=== PATIENT | female | born 1995 | race Caucasian/White ===

== ENCOUNTER → 2017-01-21 | Outpatient (CLI) | payer BC | LOC: BHSO 10:52 | DX: F41.1 Generalized anxiety disorder (principal) | CPT/HCPCS: 90791-AI ==

== ENCOUNTER → 2017-03-05 | Outpatient (CLI) | payer BC | LOC: BHSO 10:05 | DX: F41.1 Generalized anxiety disorder (principal) ==

== ENCOUNTER → 2017-06-10 | Outpatient (CLI) | payer BC | LOC: BHSO 14:16 | DX: F41.1 Generalized anxiety disorder (principal) ==

== ENCOUNTER → 2017-07-31 | Outpatient (CLI) | payer OTHER | LOC: BHSO 13:53 | DX: F41.1 Generalized anxiety disorder (principal) | CPT/HCPCS: G0463 ==

== ENCOUNTER 2023-06-20 02:57 | Outpatient (CLI) | payer BC ==
[~2023-06-20] VITALS: Ht 157.5 cm; Wt 92.7 kg
[2023-06-20] MEDS ORDERED: GLUCOSE TEST ST1 DEV (03:18)
[2023-06-20] MEDS ORDERED: GLUCOPHAGE1000 MG PO (03:18)
[2023-06-20] MEDS ORDERED: OMEGA-3 1000 MG1 CAP PO (03:24)
[2023-06-20] MEDS ORDERED: PRENATAL TABLET PO (03:25)
[2023-06-20] MEDS ORDERED: ZOLOFT 100MG100 MG PO (03:25)
[2023-06-20] MEDS ORDERED: NATURAL MAGNES200 MG PO (03:25)
[2023-06-20] MEDS ORDERED: VITAMIN D 400400 IU PO (03:26)
[2023-06-20] MEDS ORDERED: COLACE 100100 MG/CAP PO (03:26)
[2023-06-20] MEDS ORDERED: NOVOLIN N100 UNIT/1 SQ (03:28)
[2023-06-20 03:30] VITALS: BP 132/85; PULSE 73; TEMP 98.2
[2023-06-20] MEDS ORDERED: NOVOLOG FLEX100 U/ML ×2 (03:30→03:31)
--- NOTE | 2023-06-20 03:41 | NUR ---
0300- PATIENT ARRIVED VIA WHEELCHAIR WITH , DENIES LEAKING OF FLUID OR VAGINAL BLEEDING BUT STATES SHE STARTED HAVING CONTRACTIONS AROUND 0130. PATIENT CHANGED INTO HOSPITAL GOWN. EFMX2. SVE NOTED.
[2023-06-20 03:45] VITALS: BP 118/84; PULSE 90
[2023-06-20 04:00] VITALS: BP 131/81; PULSE 74
[2023-06-20 04:16] VITALS: BP 130/87; PULSE 71
--- NOTE | 2023-06-20 04:30 | NUR ---
0430- PATIENT EDUCATED ON DISCHARGE. QUESTIONS INVITED AND ANSWERED. PATIENT AMBULATORY OFF UNIT WITH .
[2023-06-21] MEDS ORDERED: IBU800 M1 PO (13:42)
== END 2023-06-20 04:30 | disposition home or self-care (01) ==
LOC: LDRO 02:57
DX: O62.9 Abnormality of forces of labor, unspecified (principal); Z3A.38 38 weeks gestation of pregnancy

== ENCOUNTER 2023-06-20 08:38 | Inpatient (IN) | payer BC ==
[2023-06-20] VITALS (40 sets, daily range): BP systolic 95–130; BP diastolic 60–91; PULSE 75–115; TEMP 97.7–98.1
[~2023-06-20] VITALS: Ht 157.5 cm; Wt 93.0 kg
[~2023-06-20 08:38] MED LIST: COLACE 100100 MG/CAP PO; GLUCOPHAGE1000 MG PO; GLUCOSE TEST ST1 DEV; NATURAL MAGNES200 MG PO; NOVOLIN N100 UNIT/1 SQ; NOVOLOG FLEX100 U/ML; OMEGA-3 1000 MG1 CAP PO; PRENATAL TABLET PO; VITAMIN D 400400 IU PO; ZOLOFT 100MG100 MG PO
--- NOTE | 2023-06-20 08:43 | NUR ---
PATIENT AMBULATORY TO UNIT WITH SPOUSE, AJ. PATIENT ORIENTED TO LABOR ROOM 5 AND ASSISTED INTO A GOWN. EFM AND TOCO PLACED AND TRACING WELL. PATIENT REPORTS CONTRACTIONS THROUGH THE NIGHT THAT ARE NOW EVERY 3-5 MINUTES. PATIENT DENIES LEAKING OF FLUID OR VAGINAL BLEEDING AND REPORTS GOOD MOVEMENT. PATIENT BREATHING THROUGH CONTRACTIONS.
[2023-06-20 11:39] LABS: BASO % 0.2 % (0.0-2.0); GRAN # 15.3 K/mm3 (1.4-6.5); GRAN % 86.5 % (42.2-75.2); HEMATOCRIT 45.1 % (37.0-47.0); HEMOGLOBIN 15.6 g/dl (12.5-16.0); LYMPH # 1.7 K/mm3 (1.2-3.4); LYMPH % 9.3 % (20.0-51.0); MEAN CELL VOLUME 90 fl (80.0-100.0); MEAN CORPUSCULAR HEMOGLOBIN 31 pg (27-31); MEAN CORPUSCULAR HGB CONC 35 g/dl (33.0-37.0); MEAN PLATELET VOLUME 10.7 fl (7.4-10.4); MONO # 0.6 K/mm3 (0.1-0.6); MONO % 3.5 % (1.7-9.3); PLATELET COUNT 176 K/mm3 (130-400); RED BLOOD COUNT 4.99 M/mm3 (4.10-5.30); REDCELL DISTRIBUTION WIDTH-CV 13.5 % (11.5-14.5)
--- NOTE | 2023-06-20 12:35 | NUR ---
1201- PATIENT REQUESTING AN EPIDURAL AT THIS TIME, AGNES RICHARDSON CALLED FOR PLACEMENT. LR BOLUS STARTED. 1220- PATIENT SITTING UP ON SIDE OF BED FOR EPIDURAL PLACEMENT. 1222- DYLAN IN PATIENTS ROOM EXPLIANING EPIDURAL PLACEMENT. PATIENT SIGNS ANESTHESIA CONSENT WITH DYLAN. 1225- PATIENT IN POSITION FOR EPIDURAL PLACEMENT, DIFFICULTY TRACING FHR DUE TO POSITIONING. 1229- SINGLE SHOT ADMINISTERED AT THIS TIME BY AGNES RICHARDSON. PATIENT TOLERATES WELL. 1235- PATIENT REPOSITIONED TO WEDGED RIGHT, THIS RN REAMINS AT BEDSIDE TO MONITOR VITAL SIGNS.
--- NOTE | 2023-06-20 12:46 | NUR ---
AT BEDSIDE TO ASSESS PATIENT PROGRESS. SVE PER -/-2, AROM AT THIS TIME THICK MECONIUM FLUID NOTED
--- NOTE | 2023-06-20 14:06 | NUR ---
1359- DIFFICULTY TRACING FHR, THIS RN AT BEDSIDE ADJUSTING EFM. 1406- PATIENT REPOSITIONED TO RIGHT LATERAL, FHR TRACING CONTINUES AT THIS TIME
--- NOTE | 2023-06-20 15:05 | NUR ---
1500- THIS RN TO BEDSIDE TO CHECK ON PATIENT. PATIENT RPEORTS NAUSEA AND IS OFFERED ZOFRAN, PATIENT ACCEPTS 1502- PATIENT VOMITING AT THIS TIME, ZOFRAN GIVEN SEE eMAR. 1505- SVE /-1.
--- NOTE | 2023-06-20 16:20 | NUR ---
PATIENT REPOSITIONED TO LEFT LATERAL FLYING COWGIRL, WITH PEANUT BALL BETWEEN HER ANKLES.
--- NOTE | 2023-06-20 16:38 | NUR ---
THIS RN REPOSITIONS PATIENT TO RIGHT LATERAL FLYING COWGIRL. EFM NOT TRACING FHR WELL THIS RN REMAINS AT BEDSIDE ADJUSTING EFM. 1645- PATIENT REPOSITIONED TO [facility] AND FHR TRACING WELL.
--- NOTE | 2023-06-20 16:48 | NUR ---
AT BEDSIDE TO ASSESS PATIENT PROGRESS. SVE /+1.
--- NOTE | 2023-06-20 17:00 | NUR ---
1655- ALEXANDER DISCONTINUED. 1700- PATIENT INSTRUCTED ON PUSHING TECHNIQUE AND BEGINS PUSHING WITH THIS RN AT BEDSIDE. PATIENT MOVE HEAD WELL.
--- NOTE | 2023-06-20 17:05 | NUR ---
IN PATIENTS ROOM TO OBSERVE PUSHING. THIS RN RECIEVES VERBAL ORDER FROM TO START PITOCIN.
--- NOTE | 2023-06-20 17:57 | NUR ---
174- CALLED FOR DELIVERY, SEE PHYSICIAN NOTIFICATION. 175- IN PATIENTS ROOM FOR DELIVERY. 175- SPONTANEOUS DELIVERY OF INFANT HEAD AND BODY. 175- SPONTANEOUS DELIVERY OF PLACENTA AT THIS TIME. PITOCIN STARTED AT 333mU/HR ORDERED AND PER PROTOCOL.
--- NOTE | 2023-06-20 21:15 | NUR ---
2114- IV TO SALINE LOCK. EPIDURAL CATHETER REMOVED CHARTED. PT ASSISTED TO BATHROOM, STANDBY ASSIST. PT ABLE TO VOID WITHOUT DIFFICULTY. PT INSTRUCTED ON AND PERFORMS PERICARE. NORMAL LOCHIA DISCUSSED. CLEAN GOWN, PAD, PANTIES PROVIDED. 2124- PT AMBULATES TO ROOM 215. BELONGINGS AND BABY WITH PT. PT ORIENTED TO ROOM AND CALL LIGHTS. PLAN OF CARE DISCUSSED AND QUESTIONS ANSWERED. PT DENIES FURTHER NEEDS AT THIS TIME.
[2023-06-21 04:05] VITALS: BP 109/74; PULSE 82; TEMP 98.1
--- NOTE | 2023-06-21 06:06 | NUR ---
0606- FASTING BLOOD SUGAR OBTAINED. PT REPORTS HAVING RESTED WELL. SHE DENIES FURTHER NEEDS AT THIS TIME.
[2023-06-21 07:30] VITALS: BP 100/69; PULSE 79; TEMP 97.4
--- NOTE | 2023-06-21 09:13 | NUR ---
REC'D CALL FROM . ASKED ABOUT FASTING GLUCOSE THIS MORNING. IT WAS IN THE 80'S. PER PROVIDER "HOLD INSULIN TODAY" ASKED IF SHE WANTED ANYMORE GLUCOSE CHECKS DONE. "LETS DO 2 HOUR PP TODAY." MOTHER UPDATED WILL CALL OUT TO HAVE GLUCOSE CHECKED.
--- NOTE | 2023-06-21 12:10 | NUR ---
PATIENT REPORTED TO THIS NURSE THAT SHE FINISHED EATING AT 1015. CHECKED 2 HOUR PP BS AT 1210 AND WAS 120.
[2023-06-21] MEDS ORDERED: IBU800 M1 PO (13:42)
[2023-06-21 16:46] VITALS: BP 116/78; PULSE 69; TEMP 97.4
[2023-06-21 21:00] VITALS: BP 114/71; PULSE 73; TEMP 97.8
[2023-06-22 07:16] VITALS: BP 122/78; PULSE 70; TEMP 97.5
== END 2023-06-22 11:24 | disposition home or self-care (01) | DRG 806 ==
LOC: LDRO 08:38 → LDR 10:25 → OB 21:25
PROVIDERS: ADMIT Student in an Organized Health Care Education/Training Program
PROC: 10E0XZZ Delivery of Products of Conception, External Approach (ICD-10-PCS; principal; 2023-06-20)
PROC: 0KQM0ZZ Repair Perineum Muscle, Open Approach (ICD-10-PCS; 2023-06-20)
PROC: 10907ZC Drainage of Amniotic Fluid, Therapeutic from Products of Conception, Via Natural or Artificial Opening (ICD-10-PCS; 2023-06-20)
DX: O24.424 Gestational diabetes mellitus in childbirth, insulin controlled (principal); E72.12 Methylenetetrahydrofolate reductase deficiency; Z37.0 Single live birth; Z3A.38 38 weeks gestation of pregnancy; O99.284 Endocrine, nutritional and metabolic diseases complicating childbirth; E28.2 Polycystic ovarian syndrome; O99.214 Obesity complicating childbirth; O99.344 Other mental disorders complicating childbirth; O77.0 Labor and delivery complicated by meconium in amniotic fluid; O76 Abnormality in fetal heart rate and rhythm complicating labor and delivery; O70.1 Second degree perineal laceration during delivery; Z23 Encounter for immunization
CPT/HCPCS: J2405; J2590; J2795; J7120